=== PATIENT | male | born 1985 | race Two or more races ===

== ENCOUNTER 2018-05-13 17:58 | Emergency (ER) | payer OTHER ==
[~2018-05-13] VITALS: Ht 180.3 cm; Wt 93.9 kg
[2018-05-13 18:21] VITALS: BP 133/73
[2018-05-13] MEDS ORDERED: ACETAMINOPHEN 325 MG TABLET PO ONE (19:00)
[2018-05-13] MEDS ORDERED: ACETAMINOPHEN 325 MG TABLET ONE (19:03)
== END 2018-05-13 19:36 | disposition home or self-care (01) ==
LOC: ER 18:03
DX: B34.9 Viral infection, unspecified (principal)
CPT/HCPCS: 71045-TC; A4606; Z7610